=== PATIENT | female | born 1995 | race Caucasian/White ===

== ENCOUNTER 2018-07-29 01:37 | Emergency (ER) | payer OTHER ==
[~2018-07-29 01:37] MED LIST: NS(*) 0.9% 1000 ML BAG 1,000 ML IV ONE
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
[2018-07-29] MEDS ORDERED: DULO60CA7 (01:40)
[2018-07-29] MEDS ORDERED: NALOXONE HCL 0.4 MG/ML VIAL IVP ONE (01:40)
[2018-07-29] MEDS ORDERED: SUMA20SP8 NS (01:40)
[2018-07-29] MEDS ORDERED: CYCL10TA29 PO (01:40)
[2018-07-29] MEDS ORDERED: NALOXONE HCL 0.4 MG/ML VIAL ONE (01:49)
--- NOTE | 2018-07-29 01:50 | EKG ---
FACILITY: [facility] PATIENT NAME: SANDRA THOMAS : [id number] MR: [id number] V: [id number] EXAM DATE: ORDERING PHYSICIAN: IVÁN FORD TECHNOLOGIST: FLAKITA Rodriguez Reason : unresponsive Blood Pressure : / mmHG Vent. Rate : 108 BPM Atrial Rate : 108 BPM P-R Int : 170 ms QRS Dur : 084 ms QT Int : 352 ms P-R-T Axes : 069 107 050 degrees QTc Int : 471 ms Sinus tachycardia Rightward axis Borderline ECG No previous ECGs available Confirmed by MAYI BINGHAM ([id number]) on 07/29/2018 6:29:05 AM Referred By: Confirmed By:MAYI BINGHAM
[2018-07-29 02:04] LABS: PLATELET COUNT, AUTOMATED 215 K/uL (150-450)
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
[2018-07-29] MEDS ORDERED: DEXAMETHASONE SOD PHOS 10MG/ML IVP ONE (03:00)
[2018-07-29] MEDS ORDERED: KETOROLAC 30 MG/ML VIAL IVP ONE (03:00)
[2018-07-29 03:13] VITALS: BP 101/65
[2018-07-29] MEDS ORDERED: PROM-110 PO (03:13)
== END 2018-07-29 03:43 | disposition home or self-care (01) ==
LOC: ER 01:38
DX: G44.321 Chronic post-traumatic headache, intractable (principal); R11.2 Nausea with vomiting, unspecified; F10.920 Alcohol use, unspecified with intoxication, uncomplicated; R00.0 Tachycardia, unspecified
CPT/HCPCS: 70450; 80305; 80320; 81001; 84484; 84703; 85025; 93005; 96361; 96374; 96375; 99284; J1100; J1885; J2310; J7030; 82040; 82247; 82310; 82374; 82435; 82565; 82947; 84075; 84132; 84155; 84295; 84450; 84460; 84520